=== PATIENT | male | born 1985 | race Asian ===

== ENCOUNTER 2017-01-21 18:21 | Emergency (ER) | payer SELFPAY ==
[~2017-01-21] VITALS: Ht 177.8 cm; Wt 79.8 kg
[2017-01-21 20:31] VITALS: BP 118/75
== END 2017-01-21 20:31 | disposition home or self-care (01) ==
LOC: ED 18:21
DX: J45.901 Unspecified asthma with (acute) exacerbation (principal); R09.02 Hypoxemia
CPT/HCPCS: J0171; J2930; J7613; J7644